=== PATIENT | male | born 1990 | race Caucasian/White ===

== ENCOUNTER 2020-12-11 13:43 | Emergency (ER) | payer OTHER ==
[2020-12-11] MEDS ORDERED: Sodium Chloride 0.9% 1,000 ML IV STA (14:51)
[2020-12-11] MEDS ORDERED: Ondansetron 4 MG/2 ML SDV IVPUSH ONE (14:51)
[2020-12-11] MEDS ORDERED: Sodium Chloride 0.9% 10 ML Syringe FLUSH PRN ×2 (14:51→15:56)
[2020-12-11] MEDS ORDERED: HYDROmorphone 1 MG/ML Syringe IVPUSH ONE (14:52)
--- NOTE | 2020-12-11 15:06 | EDM.PDOC ---
ED HPI GENERAL MEDICAL PROBLEM - General Chief Complaint: Abdominal Pain Stated Complaint: ABDOMINAL PAIN Time Seen by Provider: 12/11/20 14:30 Source of Information: Reports: Patient, Provider History Limitations: Reports: No Limitations - History of Present Illness INITIAL COMMENTS - FREE TEXT/NARRATIVE: The patient presents from the walk in clinic for abdominal pain and nausea. He says this all started at the beginning of the month. He saw his doctor Dr Tamez and she did a CT of his abdomen and pelvis and it was suspicious for Crohn's disease. He was sent to [facility] and was admitted. He was discharged and placed on antibiotics. About the same time he developed a rash and was put on prednisone. The prednisone seemed to help the most. He weaned off of the prednisone and the pain started again. The pain has gotten worse over the past couple days. He has nausea but no vomiting. He has diarrhea. He ahs no fever, chills, cough, chest pain, or shortness of breath. He still has his appendix and gallbladder. He went to see Dr Tamez at the walk in clinic. She did labs and the labs showed an elevated WBC of 19. Dr Tamez did call the GI specialist and he recommended a CT scan to make sure he did not perforate and then prednisone starting at 40mg and tapering off at 5mg every week. Onset: Gradual Duration: Week(s): Location: Reports: Abdomen Quality: Reports: Sharp Severity: Severe Improves with: Reports: None Worsens with: Reports: None Associated Symptoms: Reports: Nausea/Vomiting. Denies: Chest Pain, Cough, Fever/Chills, Headaches, Shortness of Breath Abdomen Pain Score (Numeric/FACES): 4 - Related Data Allergies Allergy/AdvReac Type Severity Reaction Status Date / Time Penicillins Allergy Severe Cannot Verified 12/11/20 14:32 Remember Home Meds: Home Meds Dicyclomine [Bentyl] 10 mg PO ASDIRECTED 12/11/20 [History] Hydrocodone/Acetaminophen [Hydrocodone-Acetamin 5-325 mg] 1 - 2 each PO Q6H PRN #15 tablet 12/11/20 [Rx] predniSONE [Prednisone] 40 mg PO DAILY #14 tablet 12/11/20 [Rx] Past Medical History - Infectious Disease History Infectious Disease History: Reports: Chicken Pox - Past Surgical History HEENT Surgical History: Reports: Adenoidectomy, Tonsillectomy GI Surgical History: Reports: Hernia, Inguinal, Hernia Repair/Other Social & Family History - Tobacco Use Tobacco Use Status *Q: Never Tobacco User - Caffeine Use Caffeine Use: Reports: Coffee, Energy Drinks, Soda, Tea - Recreational Drug Use Recreational Drug Use: No ED ROS GENERAL - Review of Systems Review Of Systems: See Below Constitutional: Reports: No Symptoms HEENT: Reports: No Symptoms Respiratory: Reports: No Symptoms Cardiovascular: Reports: No Symptoms Endocrine: Reports: No Symptoms GI/Abdominal: Reports: Abdominal Pain, Diarrhea, Nausea. Denies: Vomiting : Reports: No Symptoms Musculoskeletal: Reports: No Symptoms ED EXAM, GI/ABD - Physical Exam Exam: See Below Exam Limited By: No Limitations General Appearance: Alert, No Apparent Distress Ears: Normal External Exam Nose: Normal Inspection Head: Atraumatic, Normocephalic Neck: Normal Inspection Respiratory/Chest: No Respiratory Distress, Lungs Clear, Normal Breath Sounds Cardiovascular: Regular Rate, Rhythm, No Edema, No Murmur GI/Abdominal Exam: Soft, No Organomegaly, No Mass, Tender (Moderate generalized tenderness) Course - Vital Signs Last Recorded V/S: Last Vital Signs Temp 97.8 F 12/11/20 14:36 Pulse 97 12/11/20 14:36 Resp 20 12/11/20 14:36 BP 130/103 H 12/11/20 14:36 Pulse Ox 100 12/11/20 14:36 - Orders/Labs/Meds Orders: Active Orders 24 hr Category Date Time Status Peripheral IV Care [RC] . DIRECTED Care 12/11/20 14:52 Active Abdomen Pelvis w Cont [CT] Stat Exams 12/11/20 14:51 Taken Sodium Chloride 0.9% [Saline Flush] Med 12/11/20 14:51 Active 10 ml FLUSH ASDIRECTED PRN Sodium Chloride 0.9% [Saline Flush] Med 12/11/20 15:56 Active 10 ml FLUSH ONETIME PRN ED Antiemetic Medication Reflex [OM.PC] Stat Oth 12/11/20 14:52 Ordered Peripheral IV Insertion Adult [OM.PC] Stat Oth 12/11/20 14:51 Ordered Medication Orders Sodium Chloride (Sodium Chloride 0.9% 10 Ml Syringe) 10 ml FLUSH ASDIRECTED PRN PRN Reason: Keep Vein Open Last Admin: 12/11/20 15:33 Dose: 10 ml Documented by: [id number] Sodium Chloride (Sodium Chloride 0.9% 10 Ml Syringe) 10 ml FLUSH ONETIME PRN PRN Reason: Keep Vein Open Last Admin: 12/11/20 16:37 Dose: 10 ml Documented by: [email or web address] Meds: Medications Generic Name Dose Route Start Last Admin Trade Name Freq PRN Reason Stop Dose Admin Sodium Chloride 10 ml 12/11/20 14:51 12/11/20 15:33 Sodium Chloride 0.9% 10 Ml Syringe FLUSH 10 ml ASDIRECTED PRN Administration Keep Vein Open Sodium Chloride 10 ml 12/11/20 15:56 12/11/20 16:37 Sodium Chloride 0.9% 10 Ml Syringe FLUSH 10 ml ONETIME PRN Administration Keep Vein Open Discontinued Medications Generic Name Dose Route Start Last Admin Trade Name Freq PRN Reason Stop Dose Admin Diatrizoate Meglum/Diatrizoate Sod 60 ml 12/11/20 15:56 12/11/20 16:37 Diatrizoate Meglumine/Diatrizoate Sodium 37% 120 Ml Bottle PO 12/11/20 15:57 60 ml ONETIME ONE Administration Hydromorphone HCl 1 mg 12/11/20 14:52 12/11/20 15:29 Hydromorphone 1 Mg/Ml Syringe IVPUSH 12/11/20 14:53 1 mg ONETIME ONE Administration Sodium Chloride 1,000 mls @ 1,000 mls/hr 12/11/20 14:51 12/11/20 15:30 Normal Saline IV 12/11/20 15:50 1,000 mls/hr .BOLUS STA Administration Iopamidol 100 ml 12/11/20 15:56 12/11/20 16:37 Iopamidol 612 Mg/Ml 100 Ml Bottle IVPUSH 12/11/20 15:57 100 ml ONETIME ONE Administration Ondansetron HCl 4 mg 12/11/20 14:51 12/11/20 15:27 Ondansetron 4 Mg/2 Ml Sdv IVPUSH 12/11/20 14:52 4 mg ONETIME ONE Administration - Re-Assessments/Exams Free Text/Narrative Re-Assessment/Exam: 12/11/20 15:07 I ordered an IV NS 1L bolus, zofran 4mg IV, dilaudid 1mg IV, and a CT of his abdomen and pelvis. 12/11/20 17:[address] shows moderate edema of the mid to distal ileum consistent with a ileitis. This is nonspecific in appearance. No bowel obstruction evident. Mild free fluid in the posterior pelvis. Fatty liver change. He feels better. I will get him on the prednisone and something for pain. I will have him follow up with Dr Tamez for the rest of the prednisone course. Departure - Departure Time of Disposition: 17:50 Disposition: Home, Self-Care 01 Condition: Good Clinical Impression: Ileitis - Discharge Information *PRESCRIPTION DRUG MONITORING PROGRAM REVIEWED*: No *COPY OF PRESCRIPTION DRUG MONITORING REPORT IN PATIENT SIMIN: No Prescriptions: Hydrocodone/Acetaminophen [Hydrocodone-Acetamin 5-325 mg] 1 - 2 each PO Q6H PRN #15 tablet PRN Reason: Pain predniSONE [Prednisone] 40 mg PO DAILY #14 tablet Referrals: PCP,None [Primary Care Provider] - Loyda Tamez MD [Ordering Only Provider] - 1 Week Forms: ED Department Discharge Additional Instructions: Take the prednisone daily for 7 days. Follow up with Dr Tamez for the rest of the prednisone. Take the hydrocodone as needed for pain. Please return if you are worse. Sepsis Event Note (ED) - Focused Exam Vital Signs: Vital Signs Temp Pulse Resp BP Pulse Ox 12/11/20 14:36 97.8 F 97 20 130/103 H 100 - My Orders Last 24 Hours: My Active Orders 12/11/20 14:51 Abdomen Pelvis w Cont [CT] Stat Sodium Chloride 0.9% [Saline Flush] 10 ml FLUSH ASDIRECTED PRN Peripheral IV Insertion Adult [OM.PC] Stat 12/11/20 14:52 Peripheral IV Care [RC] . DIRECTED ED Antiemetic Medication Reflex [OM.PC] Stat 12/11/20 15:56 Sodium Chloride 0.9% [Saline Flush] 10 ml FLUSH ONETIME PRN - Assessment/Plan Last 24 Hours: My Active Orders 12/11/20 14:51 Abdomen Pelvis w Cont [CT] Stat Sodium Chloride 0.9% [Saline Flush] 10 ml FLUSH ASDIRECTED PRN Peripheral IV Insertion Adult [OM.PC] Stat 12/11/20 14:52 Peripheral IV Care [RC] . DIRECTED ED Antiemetic Medication Reflex [OM.PC] Stat 12/11/20 15:56 Sodium Chloride 0.9% [Saline Flush] 10 ml FLUSH ONETIME PRN
[2020-12-11] MEDS ORDERED: Iopamidol 612 MG/ML 100 ML Bottle IVPUSH ONE (15:56)
[2020-12-11] MEDS ORDERED: Diatrizoate Meglumine/Diatrizoate Sodium 37% 120 ML Bottle PO ONE (15:56)
[2020-12-11] MEDS ORDERED: HYDROmorphone 0.5 MG/0.5 ML Syringe IVPUSH ONE (17:52)
--- NOTE | 2020-12-12 09:13 | CT ---
CT abdomen and pelvis Technique: Multiple axial sections were obtained from above the dome of diaphragm inferiorly through the pubic symphysis. Intravenous contrast and oral contrast were utilized. Reconstructed coronal and sagittal images were obtained. Comparison: No prior abdominal imaging is available. Findings: Visualized lung bases show nothing acute. Liver contains no focal parenchymal abnormality. Spleen size is normal. Adrenal glands show no nodule. Pancreas shows no discrete abnormality. Kidneys show symmetric contrast enhancement with no hydronephrosis or mass. Gallbladder contains no calcified gallstones. Abdominal aorta shows no aneurysm. No retroperitoneal adenopathy or mesenteric abnormalities are seen. Moderate amount of free fluid is seen within the pelvis. There is bowel wall thickening being seen within ileal loops. Appendix is seen which shows no discrete abnormality. No additional pelvic abnormality is appreciated. Bone window settings were reviewed which appear within normal limits for the patient's age. Impression: 1. Bowel wall thickening within ileal loops compatible with nonspecific enteritis. 2. Free fluid within the pelvis most likely reactive from the presumed enteritis. 3. No other acute abnormality is appreciated. Diagnostic code #3 I agree with preliminary report from [facility], finalized on 12/11/20, 5:57 PM CDT, code 1
== END 2020-12-11 18:20 | disposition home or self-care (01) ==
LOC: JD.ED 13:43
DX: K52.9 Noninfective gastroenteritis and colitis, unspecified (principal); Z88.0 Allergy status to penicillin
CPT/HCPCS: 74177; 96374; 96375; 96376; 99284; J1170; J2405; J7030; Q9963; Q9967